=== PATIENT | female | born 1975 ===

== ENCOUNTER 2022-03-13 10:36 | Day surgery (SDC) | payer BC, SELFPAY ==
[2022-03-09 10:03] VITALS: BMI 28.9
--- NOTE | 2022-03-12 10:27 | P.CONAN_ITS ---
Documented by User: Izzy Levin NP 03/12/22 10:27 HPI - Anesthesia Eval Consult details Narrative: 46yo F for Colonoscopy [facility] Past Medical History Medical History No pertinent past medical history Pneumothorax Surgical History Surgical History H/O chest tube placement History of History of carpal tunnel release History of surgery on wrist Social History Social History Patient Tobacco Use Status: Current everyday Tobacco user Tobacco use type: Cigarette Cigarette Packs Per Day: 6 Cigarettes Per Day: 120.0 Use of substances other than those prescribed or required for medical reasons: No Are you DNR?: No Advance Directives: No Advance Directives Information Provided: Yes Recently lost weight without trying: No Meds Allergies Allergy/AdvReac Type Severity Reaction Status Date / Time No Known Allergies Allergy Verified 03/09/22 10:05 Home Medications Medication Instructions Recorded Confirmed Last Taken Type ascorbic acid (vitamin C) 125 mg 125 mg PO DAILY 03/09/22 03/09/22 Unknown History chewable tablet (Vitamin C) ferrous sulfate 325 mg (65 mg 1 tab PO DAILY 03/09/22 03/09/22 Unknown History iron) tablet multivitamin 1 tab PO DAILY 03/09/22 03/09/22 Unknown History Exam Exam Date and Time: March 12, 2022 1027 Height,Weight and Vital Signs: Height 5 ft 9 in Weight 88.904 kg Assessment and Plan Assessment Anesthesia Assessment: Chart Reviewed Documented by User: Janet River MD 03/13/22 12:28 [facility] Past Medical History Medical History No pertinent past medical history Pneumothorax Surgical History Surgical History H/O chest tube placement History of History of carpal tunnel release History of surgery on wrist History of Problems with Anesthesia: No Social History Social History Patient Tobacco Use Status: Current everyday Tobacco user Tobacco use type: Cigarette Cigarette Packs Per Day: 6 Cigarettes Per Day: 120.0 Use of substances other than those prescribed or required for medical reasons: No Are you DNR?: No Advance Directives: No Advance Directives Information Provided: Yes Recently lost weight without trying: No Meds Allergies Allergy/AdvReac Type Severity Reaction Status Date / Time No Known Allergies Allergy Verified 03/09/22 10:05 Home Medications Medication Instructions Recorded Confirmed Last Taken Type ascorbic acid (vitamin C) 125 mg 125 mg PO DAILY 03/09/22 03/09/22 Unknown History chewable tablet (Vitamin C) ferrous sulfate 325 mg (65 mg 1 tab PO DAILY 03/09/22 03/09/22 Unknown History iron) tablet multivitamin 1 tab PO DAILY 03/09/22 03/09/22 Unknown History Exam Airway Mallampati Class: I TM Dist: >3cm Neck ROM: Full Loose/Missing/Broken Teeth: No Heart: RRR Lungs: CTA Assessment and Plan Assessment Anesthesia Assessment: Anesthesia Plan Discussed Final Anesthetic Review History of Problems with Anesthesia: No NPO: Yes ASA Class: II Final Preanesthetic Review: Meds/Allgs Chart Reviewed, Consent Obtained/Reviewed and Anes Risks/Benef Reviewed Patient Risk: Low Procedure Risk: Low Anesthetic Plan Anesthetic Plan: MAC: Disposition: Standard PACU
[2022-03-13 11:28] LABS: UPreg QC Valid YES; Urine Pregnancy NEGATIVE (NEGATIVE)
[2022-03-13 11:50] VITALS: BMI 26.9
[2022-03-13 11:54] VITALS: BP 174/93; PULSE 84; RESP 17; TEMP 37.5; O2SAT 97
[2022-03-13] MEDS: Lactated Ringers 1,000 ML 100 ML IVCONT (12:07)
--- NOTE | 2022-03-13 12:26 | MHC.SHP ---
Pre-Procedural Eval Section A Date of Service: 03/13/22 The patient is an INPATIENT: No Changes since office visit: No Cold of Flu in the past 2 weeks, No New Medical Problems, No Changes in Medication and No Patient answered all questions The History & Physical has been completed within 30 days and I have reviewed it.: Yes Section B Chief Complaint: screening Allergies: Allergies Allergy/AdvReac Type Severity Reaction Status Date / Time No Known Allergies Allergy Verified 03/09/22 10:05 Plan I have reviewed the history and physical and performed a pertinent physical examination on my patient. No changes have occurred unless specified.
--- NOTE | 2022-03-13 13:02 | P.BOP_ITS ---
Brief Operative Note Date of Service: 03/13/22 Pre-op diagnosis: screening, fh colon ca Post-op diagnosis: same Procedure: colonoscopy Surgeon: Ion Fowler Anesthesia: MAC Was an Instrument Repair Specialist used for this Procedure?: No Estimated blood loss (mL): 0 Pathology: none sent Condition: stable Disposition: PACU
[2022-03-13 13:03] VITALS: BP 126/64; PULSE 82; RESP 16; TEMP 36.5; O2SAT 99
[2022-03-13 13:18] VITALS: BP 128/66; PULSE 68; RESP 16; O2SAT 99
[2022-03-13 13:30] VITALS: BP 146/87; PULSE 69; RESP 16; O2SAT 99
[2022-03-13 13:45] VITALS: BP 141/85; PULSE 69; RESP 16; TEMP 36.2; O2SAT 99
--- NOTE | 2022-03-13 23:17 | OP_ITS ---
SURGEON: Ion Fowler MD INDICATIONS: Colon cancer screening and family history of colon cancer. PREOPERATIVE DIAGNOSIS: POSTOPERATIVE DIAGNOSIS: PROCEDURE PERFORMED: Colonoscopy to the terminal ileum. ESTIMATED BLOOD LOSS: COMPLICATIONS: ANESTHESIA: ASSISTANTS: SPECIMENS: MEDICATIONS: Monitored anesthesia care. DESCRIPTION OF PROCEDURE: History and physical were performed. The risks and benefits of the procedure were explained to the patient. Informed consent was obtained. The patient was placed in the left lateral decubitus position. A digital rectal exam was performed and was found to be normal. The Olympus pediatric video colonoscope was introduced into the rectum and advanced to the cecum without difficulty. The cecum was identified by transillumination, palpation, and identification of ileocecal valve. Examination was performed. The scope was removed. She tolerated the procedure well and was sent to recovery area in stable condition. FINDINGS: The terminal ileum was examined and appeared normal. The visualized colonic mucosa was normal. The quality of prep was good. No polyps were identified. Retroflexed examination did show some small internal hemorrhoids. IMPRESSION: Normal colonoscopy. RECOMMENDATION: 1. Follow up as needed. 2. Consider repeat colonoscopy in 5 years because of family history. MD JAIMEE Harley/JUAN / [id number]
== END 2022-03-13 14:20 | disposition home or self-care (01) ==
PROVIDERS: Nurse Practitioner; PCP Internal Medicine; Visit Provider Internal Medicine Gastroenterology
PROC: 0DJD8ZZ Inspection of Lower Intestinal Tract, Via Natural or Artificial Opening Endoscopic (ICD-10-PCS; CPT 45378; principal; 2022-03-13 12:10)
DX: Z12.11 Encounter for screening for malignant neoplasm of colon (principal); Z80.0 Family history of malignant neoplasm of digestive organs; K64.8 Other hemorrhoids; D50.0 Iron deficiency anemia secondary to blood loss (chronic); F17.210 Nicotine dependence, cigarettes, uncomplicated; Z79.899 Other long term (current) drug therapy
CPT/HCPCS: 45378; 81025